=== PATIENT | male | born 1975 | race Hispanic/Latino ===

== ENCOUNTER 2017-11-03 18:06 | Emergency (ER) | payer SELFPAY ==
[2017-11-03 19:14] LABS: Base Excess-Venous 1.4 mmol/L (0 (+/- 2.5)); Bicarbonate (HCO3v) 25.8 mmol/L (1.0-85.0); CO2 Tension (PvCO2) 39.3 mmHg (41.0-51.0); Hemoglobin - Calc 18.7 g/dL (12.0-18.0); O2 Tension (PvO2) 39.4 mmHg (35.0-45.0); Potassium 3.6 mmol/L (3.4-4.7); pH (Venous) 7.426 (7.35-7.45); vO2 Saturation-calc 75.5 % (94-98)
[2017-11-03 19:20] LABS: #Basophils 0.1 thou/uL (0.0-0.2); #Lymphocytes 2.5 thou/uL (1.20-3.40); #Monocytes 0.7 thou/uL (0.11-0.59); #Neutrophils 8.5 thou/uL (1.40-6.50); %Basophils 0.7 % (0.0-1.0); %Eosinophils 0.3 % (0.0-10.0); %Lymphocytes 21.3 % (21.0-51.0); %Monocytes 5.6 % (0.0-10.0); %Neutrophils 72.1 % (42.0-75.0); Hemoglobin 17.6 g/dL (14.0-18.0); Mean Corpuscular HGB CONC 35.8 g/dL (32.0-36.0); Mean Corpuscular Hemoglobin 31.1 pg (27.0-31.0); Mean Corpuscular Volume 86.8 fL (78.0-98.0); Mean Platelet Volume 6.4 fL (7.4-10.4); Platelet Count 339 thou/uL (130-400); RBC Distribution Width 12.3 % (11.5-14.5); Red Blood Cell (RBC) Count 5.65 mill/uL (4.70-6.10); White Blood Cell (WBC) Count 11.8 thou/uL (4.8-10.8)
[2017-11-03 19:34] LABS: ALT (SGPT) 39 U/L (8-55); AST (SGOT) 25 U/L (5-34); Albumin 3.1 g/dL (3.5-5.0); Alkaline Phosphatase 78 U/L (40-150); Anion Gap 20 mmol/L (10-20); BUN (Urea Nitrogen) 13 mg/dL (8.9-20.6); Bilirubin, Total 0.5 mg/dL (0.2-1.2); Calc. Creatinine Clearance 0 mL/min (70-130); Calcium 8.6 mg/dL (7.8-10.44); Carbon Dioxide 16 mmol/L (22-29); Chloride 103 mmol/L (98-107); Estimated GFR-MDRD Greater than 90; Globulin 3.5 g/dL (2.4-3.5); Glucose 208 mg/dL (70-105); Potassium 3.7 mmol/L (3.5-5.1); Protein, Total 6.6 g/dL (6.0-8.3); Sodium 135 mmol/L (136-145)
[2017-11-03 22:53] LABS: Medtox Reader # READER 1
[2017-11-03 22:55] LABS: Amphetamine Detected (NotDetected); Barbiturates Screen Not Detected (NotDetected); Benzodiazepine Screen Not Detected (NotDetected); Cocaine Metabolite Screen Not Detected (NotDetected); Medtox Control Line Valid? VALID (VALID); Methadone Not Detected (NotDetected); Methamphetamine Detected (NotDetected); Opiate Screen Detected (NotDetected); Oxycodone Screen Not Detected (NotDetected); Phencyclidine (PCP) Not Detected (NotDetected); THC/Cannabinoid Screen Detected (NotDetected); Tricyclic Screen Not Detected (NotDetected)
== END 2017-11-03 22:44 | disposition home or self-care (01) ==
LOC: ERS 18:06
DX: E86.0 Dehydration (principal); E11.9 Type 2 diabetes mellitus without complications; E78.5 Hyperlipidemia, unspecified; I10 Essential (primary) hypertension; F17.210 Nicotine dependence, cigarettes, uncomplicated; Z79.4 Long term (current) use of insulin; F41.9 Anxiety disorder, unspecified
CPT/HCPCS: 36415; 80306; 82010; 82330; 82803; 83605; 83930; 84443; 96360; 96361

== ENCOUNTER 2017-11-25 23:56 | Observation (INO) | payer SELFPAY ==
[2017-11-26] MEDS ORDERED: Ondansetron HCl/PF 4 MG/2 ML Vial IVP PRN (02:55)
[2017-11-26 03:33] VITALS: BMI 38.2
[2017-11-26] MEDS ORDERED: Dextrose 5% in Water 1,000 ML IV PRN ×2 (04:40→09:10)
[2017-11-26] MEDS ORDERED: Dextrose 50% Abboject 50 ML SYRINGE IVP PRN (04:40)
[2017-11-26] MEDS: Dextrose 5 % And 0.9 % NaCl 1,000 ML IV SCH ×2 (05:07→19:14)
[2017-11-26] MEDS: HumaLOG 300 UNITS/3 ML VIAL SC PRN ×3 (06:28→21:02)
[2017-11-26] MEDS ORDERED: Dextrose 50% Abboject 50 ML SYRINGE SLOW IVP PRN (09:10)
[2017-11-26] MEDS ORDERED: Acetaminophen 325 MG TAB PO PRN (09:10)
[2017-11-26] MEDS: HYDROcodone/Acetaminophen 5/325 mg Tablet PO PRN ×2 (15:04→21:02)
--- NOTE | 2017-11-26 15:34 | CON ---
DATE OF CONSULTATION: 11/26/2017 CHIEF COMPLAINT: Swallowed ammonia. HISTORY OF PRESENT ILLNESS: Mr. Mckinley is a 42-year-old man, who had an accidental ingestion of freddy ia yesterday. He and his were cleaning the house and she had put ammonia in a water bottle. He had taken a swig from the water bottle and swallowed some ammonia initially. He has a partial dentu re on the top and did not immediately realize it. With the 2nd swallow, he realized that the taste w as off and then he vomited. He did have some pain and burning in his chest with reflux symptoms. Hi s pain in his chest was initially 8/10 and now he is pain free. He has had no hematemesis with this. No diarrhea, constipation, blood in the stool. No abdominal pain. He has had a couple of bowel mo vements this morning, which are unremarkable. He has no chest pain or shortness of breath. No oroph aryngeal pain or trouble swallowing. He actually was given breakfast this morning and a hamburger fo r lunch, which he tolerated without any problems. PAST MEDICAL HISTORY: Diabetes mellitus, type 2; hyperlipidemia; hypertension. He has had chronic p ain in his right leg or back pain, for which he has been taking ibuprofen 8 tablets a day. He appare ntly had an episode of diverticulitis 2 years ago. He had a CT scan performed a couple weeks ago whe n he went to the emergency room with some right upper quadrant pain. CT then showed fatty liver dise ase and diverticulosis, but no acute abnormalities. That pain resolved completely with IV hydration alone. Temporal arteritis. PAST SURGICAL HISTORY: Appendectomy, cholecystectomy. FAMILY HISTORY: Negative for GI malignancy. SOCIAL HISTORY: He smokes a pack per month. He has used marijuana and cocaine in the past. He drin ks alcohol maybe twice per year. MEDICATION ALLERGIES: LISINOPRIL. CURRENT MEDICATIONS: Prior to admission, insulin and ibuprofen 800 mg twice daily. REVIEW OF SYSTEMS: Negative x10 systems reviewed except as stated in the history of present illness. PHYSICAL EXAMINATION: VITAL SIGNS: Temperature 98.5, pulse 88, blood pressure 156/100. GENERAL: He is in no acute distress, alert and oriented x3. HEENT: Eyes have no scleral icterus. Oropharynx is clear, without lesions. NECK: There is no cervical or supraclavicular lymphadenopathy. LUNGS: Clear to auscultation bilaterally. HEART: Regular rate and rhythm without murmur. ABDOMEN: Soft, nontender, nondistended. Bowel sounds are present. He has an incision in the lower abdomen just to the right of midline with a small ventral hernia in that area. This has been asympto matic. EXTREMITIES: No lower extremity edema. LABORATORY DATA: White blood cell count 9.0, hemoglobin 17.8, platelets 414. INR 0.8. Creatinine 1 .09, bilirubin 0.2, AST 20, ALT 31, alkaline phosphatase 84. IMPRESSION: Acute accidental caustic alkali ingestion with ammonia. This appears to be a small volu me. There are no oral lesions. He had significant substernal pain after the ingestion, but currentl y he is pain free. He has actually tolerated solid food today. RECOMMENDATIONS: 1. Plan upper endoscopy tomorrow to assess degree of injury and for risk assessment for delayed comp lications. 2. Start pantoprazole IV daily.
[2017-11-26] MEDS ORDERED: Pantoprazole 40 MG VIAL IVP SCH (16:15)
[2017-11-26] MEDS ORDERED: hydrALAZINE 20 MG/ML VIAL SLOW IVP PRN (17:28)
[2017-11-26] MEDS: Dextrose 5 %-0.45 % NaCl 1,000 ML IV SCH (18:47)
--- NOTE | 2017-11-26 19:56 | HP ---
DATE OF CONSULTATION: 11/26/2017 CHIEF COMPLAINT: Swallowed ammonia. HISTORIAN: The patient and , reliable. HISTORY OF PRESENT ILLNESS: This is a 42-year-old man with past medical history of hyperlipidemia, d iabetes mellitus type 2, hypertension, temporal arteritis, presenting with chief complaint of ingesti on of ammonia yesterday. Per patient, his was cleaning the house and left the ammonia in the wa ter bottle. Patient did not know that it was ammonia in the water bottle and patient swallowed the a mmonia accidentally. Patient states that he did not do this intentionally. He did not mean to hurt himself and he loves himself too much to drink ammonia to try hurt himself. Per the patient, he stat es that the reason why he swallowed the ammonia was because he did not immediately realize it until a fter he swallowed the ammonia that is when he tasted that it was pneumonia. Patient initially had so me pain and burning in the chest which he described as chest pain that sometimes he normally gets wit h reflux. Patient stated that the chest pain was 8/10 and after coming to the ED and receiving treat ment now, pain is 0/10. Patient denies any nausea, vomiting, headaches, dizziness, and palpitations. No abdominal pain, no diarrhea, no constipation. The patient states that he is not eating anything since he came to the hospital. REVIEW OF SYSTEMS: Positive for chest discomfort initially and negative for the above stated in the HPI and documented. PAST MEDICAL HISTORY: Diabetes mellitus type 2, hyperlipidemia and hypertension. PAST SURGICAL HISTORY: Appendectomy and cholecystectomy. FAMILY HISTORY: Patient denies any significant past family history. SOCIAL HISTORY: Patient smokes a pack per month and the patient has used marijuana and cocaine in th e past. Patient also drinks alcohol occasionally. ALLERGIES: Patient is allergic to LISINOPRIL. CURRENT MEDICATIONS: Levemir 52 units subcu b.i.d. PHYSICAL EXAMINATION: VITAL SIGNS: At ED, Blood pressure was at 151/100, pulse is 97, respiratory rate 14, O2 sat was 98 o n room air. Blood pressure on admission 149/109, pulse 106, respiratory rate of 18, O2 sat of 96. GENERAL: Patient appears his stated age, obese male, not in acute distress. HEENT: Normocephalic, atraumatic. Pupils are equally round and reactive to light. Extraocular move ments are intact. No sclerae icterus noted. NECK: Supple, no JVD. Mouth, mucous membranes are moist. Back of the throat showed no erythema. Harika short does not have any ulcerations noted at the oral mucosa. RESPIRATORY: The patient has good air intake. Clear to auscultation bilaterally in anterior lung fi elds and the posterior lung [place]. No wheezes, no rales, no rhonchi appreciated. CARDIAC: Positive S1, S2, regular rate and rhythm. No murmurs, no rubs, no gallops appreciated. ABDOMEN: Obese abdomen with a scar on the right upper quadrant and suprapubic region noted. Positiv e bowel sounds in all quadrants, nondistended, soft, nontender. EXTREMITIES: Upper extremities, patient has 5/5 upper extremity strength. Good pulses, radial pulse s bilaterally. Lower extremities: The patient has 5/5 lower extremity strength. No edema noted. G ood pulses bilaterally in the dorsalis pedis. NEUROLOGIC: No focal neurologic deficits noted. Cranial nerves II-XII grossly intact. SKIN: Warm, dry and intact. Patient has tattoos bilaterally on the skin of the upper extremities. PSYCHIATRIC: Normal affect. Alert, oriented x3. LABORATORY DATA: WBC 9.0, hemoglobin of 17.8, hematocrit of 54.4, platelets of 414. Coags, INR is 0 .8. Chemistry: Sodium 134, potassium of 3.9, chloride of 99, BUN of 26, creatinine of 1.09, glucose of 235. Urinalysis negative for nitrite and leukocyte esterase. Toxicology detected opioids, amphe tamines, methamphetamines and cannabinoids. ASSESSMENT AND PLAN: This is a 42-year-old male being admitted for: 1. Ammonia injection. The patient was initially made n.p.o.; however, now we will admit patient. W e have started the patient on a diet and patient is tolerating a diet. GI saw the patient. Per GI, they are going to do EGD in the morning. We will follow up with GI's recommendations. 2. History of hypertension. The patient currently is not taking any medications. The patient state d he does not have insurance. We will get the patient coupons for medications and we will manage his blood pressures as needed. 3. Diabetes mellitus type 2. The patient is on Levemir 52 units. At this point, we will do sliding scale and will start patient on 1/2 of the dose of his home dose of Levemir. We will monitor the gl ucose levels. 4. Hyperlipidemia. We will start patient on statin. 5. Deep venous thrombosis prophylaxis. We will do sequential compression devices and we will do no chemical gastrointestinal prophylaxis as patient is tolerating diet.
[2017-11-26] MEDS ORDERED: Atorvastatin Calcium 40 MG TAB PO SCH (21:00)
[2017-11-26] MEDS: Hydrochlorothiazide 25 MG TAB PO SCH (21:02)
[2017-11-26] MEDS: Insulin Glargine 25 UNITS in Pre-Filled Syringe 1 EACH SC SCH (21:02)
[2017-11-27] MEDS: Dextrose 5 %-0.45 % NaCl 1,000 ML IV SCH (04:54)
[2017-11-27] MEDS: HYDROcodone/Acetaminophen 5/325 mg Tablet PO PRN ×2 (06:24→11:08)
[2017-11-27 06:27] LABS: #Basophils 0.1 thou/uL (0.0-0.2); #Eosinphils 0.3 thou/uL (0.0-0.7); #Lymphocytes 3.6 thou/uL (1.20-3.40); #Monocytes 0.6 thou/uL (0.11-0.59); #Neutrophils 5.5 thou/uL (1.40-6.50); %Eosinophils 3.2 % (0.0-10.0); %Lymphocytes 35.4 % (21.0-51.0); %Neutrophils 54.3 % (42.0-75.0); Hemoglobin 18.5 g/dL (14.0-18.0); Mean Corpuscular HGB CONC 34.7 g/dL (32.0-36.0); Mean Corpuscular Volume 86.5 fL (78.0-98.0); Mean Platelet Volume 6.7 fL (7.4-10.4); Platelet Count 397 thou/uL (130-400); RBC Distribution Width 12.3 % (11.5-14.5); Red Blood Cell (RBC) Count 6.16 mill/uL (4.70-6.10); White Blood Cell (WBC) Count 10.2 thou/uL (4.8-10.8)
[2017-11-27] MEDS: HumaLOG 300 UNITS/3 ML VIAL SC PRN ×2 (06:35→11:08)
[2017-11-27 06:38] LABS: ALT (SGPT) 30 U/L (8-55); AST (SGOT) 27 U/L (5-34); Albumin 3.6 g/dL (3.5-5.0); Alkaline Phosphatase 88 U/L (40-150); Anion Gap 21 mmol/L (10-20); BUN (Urea Nitrogen) 13 mg/dL (8.9-20.6); Bilirubin, Total 0.5 mg/dL (0.2-1.2); Calc. Creatinine Clearance 166 mL/min (70-130); Calcium 9.5 mg/dL (7.8-10.44); Carbon Dioxide 18 mmol/L (22-29); Chloride 97 mmol/L (98-107); Estimated GFR-MDRD 80; Globulin 4.5 g/dL (2.4-3.5); Glucose 245 mg/dL (70-105); Potassium 3.7 mmol/L (3.5-5.1); Protein, Total 8.1 g/dL (6.0-8.3); Sodium 132 mmol/L (136-145)
[2017-11-27] MEDS: Dextrose 5 % And 0.9 % NaCl 1,000 ML IV SCH (07:23)
[2017-11-27] MEDS ORDERED: Pantoprazole 40 MG VIAL IVP SCH (09:00)
[2017-11-27] MEDS: Insulin Glargine 25 UNITS in Pre-Filled Syringe 1 EACH SC SCH (09:00)
[2017-11-27] MEDS ORDERED: Promethazine HCl 25 MG/ML VIAL IM PRN (10:29)
[2017-11-27] MEDS ORDERED: Meperidine HCl/PF 25 MG/ML VIAL SLOW IVP PRN (10:29)
[2017-11-27] MEDS ORDERED: Ondansetron HCl/PF 4 MG/2 ML Vial IVP PRN (10:29)
[2017-11-27] MEDS ORDERED: Promethazine HCl 25 MG/ML VIAL SLOW IVP PRN (10:29)
[2017-11-27 10:54] VITALS: BP 184/114; TEMP 98.5
[2017-11-27] MEDS: Hydrochlorothiazide 25 MG TAB PO SCH (11:07)
--- NOTE | 2017-11-27 11:56 | OP ---
DATE OF PROCEDURE: 11/26/2017 PROCEDURE PERFORMED: Esophagogastroduodenoscopy. PREOPERATIVE DIAGNOSES: Reported ingestion of ammonia yesterday. He has no odynophagia or dysphagia . Normal oral exam. He ate a hamburger yesterday and cannot be scoped today, he came in. POSTOPERATIVE DIAGNOSES: Normal pharynx, normal esophagus, normal stomach, normal duodenum. RECOMMENDATIONS: Advance diet. We will sign off from a GI standpoint. ANESTHESIA: TIVA. PROCEDURE IN DETAIL: After the patient was informed of the risks, benefits, possible complications o f endoscopy including perforation, bleeding, reactions to medication and aspiration, informed consent was obtained. The patient was brought to the endoscopy suite where he was sedated in gradual fashio n. Once he was comfortable, a bite block was placed by incisural orifice. The endoscope was advance d to the esophagus, stomach and second and third portion of duodenum and slowly removed. There was g ood visualization of mucosa. There was no evidence of bradley or erythema, necrosis, ulceration, blist ering or anything else in the oropharynx, esophagus, stomach or duodenum of the third portion. Retro flexed views in the stomach were normal. The stomach was normal and was fully distended. After this exam was performed, the stomach was desufflated. The scope was removed. The patient brought to [facility] in stable condition.
[2017-11-27] MEDS ORDERED: PROPOFOL 200 MG/20 ML VIAL ONE (15:14)
[2017-11-27] MEDS ORDERED: Lidocaine 1% PF 5 ML VIAL ONE (15:14)
== END 2017-11-27 14:25 | disposition home or self-care (01) ==
LOC: ERS 23:56 → SURG B 11-26 02:53
PROVIDERS: ADMIT Internal Medicine; ATTEND Internal Medicine
PROC: 0DJ08ZZ Inspection of Upper Intestinal Tract, Via Natural or Artificial Opening Endoscopic (ICD-10-PCS; principal; 2017-11-26)
DX: T54.3X1A Toxic effect of corrosive alkalis and alkali-like substances, accidental (unintentional), initial encounter (principal); E11.9 Type 2 diabetes mellitus without complications; E78.5 Hyperlipidemia, unspecified; I10 Essential (primary) hypertension; F17.210 Nicotine dependence, cigarettes, uncomplicated; G89.29 Other chronic pain; M54.9 Dorsalgia, unspecified; M79.604 Pain in right leg; Z79.4 Long term (current) use of insulin; Z88.8 Allergy status to other drugs, medicaments and biological substances
CPT/HCPCS: 36415; 36416; 80053; 85025; 96360; 96361; 99285; A4216; C9113; G0378; J0360; J2001; J2704